=== PATIENT | female | born 1955 | race Caucasian/White ===

== ENCOUNTER 2016-08-18 06:22 | Day surgery (SDC) | payer OTHER ==
[2016-08-18] VITALS (9 sets, daily range): BP systolic 89–106; BP diastolic 50–66
[~2016-08-18] VITALS: Ht 157.5 cm; Wt 74.4 kg
[2016-08-18] MEDS ORDERED: ACETAMINOPHEN/CODEINE 300/30MG 1 TAB PO PRN (07:30)
[2016-08-18] MEDS ORDERED: MORPHINE SULFATE 4 MG/ML SYR IM/IVP PRN (07:30)
[2016-08-18] MEDS ORDERED: ONDANSETRON 4 MG/2 ML VIAL IVP PRN ×2 (07:30→10:05)
[2016-08-18] MEDS ORDERED: IBUPROFEN 800 MG TAB PO PRN (07:30)
[2016-08-18] MEDS ORDERED: MOTRIN600 MG PO (07:37)
[2016-08-18] MEDS ORDERED: ONDANSETRON 4 MG/2 ML VIAL ONE (09:20)
[2016-08-18] MEDS ORDERED: PROPOFOL 200 MG/20 ML VIAL IV ONE (09:20)
[2016-08-18] MEDS ORDERED: SEVOFLURANE 250 ML BTL INH ONE (09:20)
[2016-08-18] MEDS ORDERED: hydrALAZINE 20 MG/ML VIAL ONE (09:20)
[2016-08-18] MEDS ORDERED: DEXAMETHASONE 4 MG/ML VIAL ONE (09:20)
[2016-08-18] MEDS ORDERED: MIDAZOLAM 2 MG/2 ML VIAL ONE (09:21)
[2016-08-18] MEDS ORDERED: fentaNYL 0.05 MG/ML VIAL ONE (09:22)
[2016-08-18] MEDS ORDERED: MEPERIDINE 50 MG/ML SYR ONE (09:23)
[2016-08-18] MEDS: LACTATED RINGERS 1,000 ML IV SCH ×2 (10:03→18:23)
[2016-08-18] MEDS ORDERED: diphenhydrAMINE 50 MG/ML VIAL IVP PRN (10:05)
[2016-08-18] MEDS ORDERED: HYDROmorphone 1 MG/ML AMP IVP PRN (10:05)
[2016-08-18] MEDS ORDERED: MEPERIDINE 25 MG/ML SYR IVP PRN (10:05)
--- NOTE | 2016-08-18 11:20 | NUR ---
RECEIVED PT FROM OR. PT IS A/O X 4. NO S/S OF ACUTE CARDIAC/RESPIRATORY DISTRESS OR DISCOMFORT. PT CAME IN WITH BP OF 89/50, HR 53, TEMP 96.8f, 97% O2. DR PERKINS NOTIFIED, AND PT WAS SEEN.
--- NOTE | 2016-08-18 11:30 | NUR ---
1L BOLUS NS INFUSING, BP INCREASED TO 102/66, HR 73. DR PERKINS PRESENT. PT HAS NO S/S OF ACUTE DISTRESS OR DISCOMFORT. CALL LIGHT WITHIN REACH. WILL CONTINUE TO MONITOR.
--- NOTE | 2016-08-18 14:30 | NUR ---
PT IS EATING LUNCH AND TOLERATING REGULAR DIET WELL. AT BEDSIDE. NO S/S OF ACUTE DISTRESS OR DISCOMFORT. CALL LIGHT WITHIN REACH. WILL CONTINUE TO MONITOR.
--- NOTE | 2016-08-18 16:05 | NUR ---
PT IS AWAKE AND RESTING IN BED. NO S/S OF ACUTE DISTRESS OR DISCOMFORT. CALL LIGHT WITHIN REACH. WILL CONTINUE TO MONITOR.
--- NOTE | 2016-08-18 19:00 | NUR ---
DISCHARGE INSTRUCTIONS PROVIDED TO PT, VERBALIZED UNDERSTANDING. PT SIGNED DISCHARGE PAPERWORK, PROVIDED A COPY. REMOVED ARM BANDS. REMOVED IV, INTACT AND PATENT. PT HAS NO S/S OF ACUTE DISTRESS OR DISCOMFORT. PT IN STABLE CONDITION. WHEELCHAIRED PT TO FRONT LOBBY TO BE PICKED UP BY .
== END 2016-08-18 19:00 | disposition home or self-care (01) ==
LOC: MDS 06:22 → MMU 06:22 → EDSTATUS 08:20 → MTU 11:20 → MDS 19:00
PROVIDERS: ATTEND Obstetrics & Gynecology
DX: N39.3 Stress incontinence (female) (male) (principal); N81.4 Uterovaginal prolapse, unspecified; I10 Essential (primary) hypertension; F32.9 Major depressive disorder, single episode, unspecified; G43.909 Migraine, unspecified, not intractable, without status migrainosus; K21.9 Gastro-esophageal reflux disease without esophagitis; M19.90 Unspecified osteoarthritis, unspecified site; K46.9 Unspecified abdominal hernia without obstruction or gangrene
CPT/HCPCS: 36415; 57265; 71010; 80053; 85025; 86886; 86900; 86901; 87081; 93005; J0360; J0690; J1100; J2175; J2250; J2270; J2405; J2704; J3010; J7030; J7060; J7120